=== PATIENT | female | born 1970 | race Caucasian/White ===

== ENCOUNTER → 2018-09-08 | Outpatient (CLI) | payer BC ==
--- NOTE | 2018-09-08 18:05 | EEG ---
DATE OF SERVICE: 09/08/2018 EEG NUMBER: [id number]. OBJECTIVE: The patient is a 48-year-old female with migraines, dizziness, and electrical sensations in her body. DESCRIPTION: This is a digital study. Electrodes are placed according to the international 10-20 system. Bipolar and referential montages are available. Activation procedures typically include hyperventilation and intermittent photic stimulation. INTERPRETATION: The waking background consists of 9-10 Hz, 50-100 microvolt activity, symmetrically distributed over parietooccipital regions and reactive to eye opening. Hyperventilation and intermittent photic stimulation are noncontributory. Stage 2 sleep is achieved with normal electroencephalogram patterns. All computer identified abnormalities are reviewed and none are truly abnormal. IMPRESSION: This electroencephalogram with the patient awake and asleep is within normal limits. There is no focal, paroxysmal, or epileptiform activity. Thank you for letting us help with the patient's care. MIRIAN YOST MD DR: MAX/karly JOB#: [id number] / [id number] DOC Roque
== END | disposition home or self-care (01) ==
LOC: RT 07:55
PROVIDERS: ATTEND Psychiatry & Neurology Neurology with Special Qualifications in Child Neurology
DX: G43.701 Chronic migraine without aura, not intractable, with status migrainosus (principal); M79.7 Fibromyalgia; R20.8 Other disturbances of skin sensation; R42 Dizziness and giddiness
CPT/HCPCS: 95816

== ENCOUNTER → 2018-09-14 | Outpatient (CLI) | payer BC ==
--- NOTE | 2018-09-14 12:24 | KCIC ---
EXAM: Brain MRI without contrast. HISTORY: Migraines. Fibromyalgia. TECHNIQUE: Multiplanar, multisequence magnetic resonance imaging of the brain was performed without contrast. COMPARISON: CT dated 07/21/2018. FINDINGS: There is no restricted diffusion to suggest acute or subacute infarction. There is no susceptibility effect to suggest hemorrhage. There is no mass effect or midline shift. There is no hydrocephalus. No suspicious white matter lesion is seen. The orbits, paranasal sinuses and mastoid air cells are unremarkable. There are normal flow voids within the cerebral vessels. There is no calvarial lesion. There are incidental low-lying cerebellar tonsils, without significant ectopia. IMPRESSION: No acute intracranial finding. Electronically signed by: Drea Otto MD (09/14/2018 12:21 PM) [place] [id number]
== END | disposition home or self-care (01) ==
LOC: KCIC MRI 10:19 → EDUNIT# 11:00
PROVIDERS: ATTEND Psychiatry & Neurology Neurology with Special Qualifications in Child Neurology
DX: G43.701 Chronic migraine without aura, not intractable, with status migrainosus (principal); M79.7 Fibromyalgia; R20.8 Other disturbances of skin sensation
CPT/HCPCS: 70551

== ENCOUNTER 2019-04-26 13:36 | Emergency (ER) | payer BC ==
[~2019-04-26] VITALS: Ht 160 cm; Wt 82.6 kg
[2019-04-26] MEDS ORDERED: MECLIZINE HCL 12.5 MG TABLET. PO STA (13:49)
--- NOTE | 2019-04-26 13:56 | PHYS DOC ---
Adult General Chief Complaint Chief Complaint: MULTIPLE COMPLAINTS HPI HPI Patient is a 48 year old female who presents with multiple symptoms. The patient states that she has a history of migraines and got Botox on Thursday. She states she has a minor headache to the right side of her forehead. The patient also states she's been dizzy, she states that the dizziness can be described as the room is spinning. The patient reports feeling like she is leaning to the left and feeling unbalanced when she is walking. She also reports nausea, mild shortness of breath states that the shortness of breath and sore usual for her. The patient also states she's been having left shoulder pain that radiates down to her left hand this been constant since Thursday. Denies fevers. Review of Systems Review of Systems Constitutional: Denies fever or chills. Reports vertigo. Eyes: Denies change in visual acuity, redness, or eye pain [] HENT: Denies nasal congestion or sore throat [] Respiratory: Reports shortness of breath [] Cardiovascular: No additional information not addressed in HPI [] GI: Reports nausea. Denies abdominal pain, vomiting, bloody stools or diarrhea [] : Denies dysuria or hematuria [] Musculoskeletal: Reports L shoulder pain that radiates down her left arm. Integument: Denies rash or skin lesions [] Neurologic: Reports headache, Denies focal weakness or sensory changes [] Endocrine: Denies polyuria or polydipsia [] Complete systems were reviewed and found to be within normal limits, except as documented in this note. Current Medications Current Medications Current Medications Medications (Trade) Dose Ordered Sig/[facility] Start Time Stop Time Status Last Admin Dose Admin Meclizine HCl (Antivert) 25 mg 1X STAT 04/26/19 13:49 04/26/19 14:00 DC 04/26/19 14:13 25 MG Ondansetron HCl (Zofran) 4 mg 1X ONCE 04/26/19 14:00 04/26/19 14:01 DC 04/26/19 14:13 4 MG Sodium Chloride 1,000 ml @ 1,000 mls/hr 1X ONCE 04/26/19 14:00 04/26/19 14:59 DC 04/26/19 14:13 1,000 MLS/HR Allergies Allergies Allergies Coded Allergies Type Severity Reaction Last Updated Verified acetaminophen Allergy Mild itching 04/26/19 Yes hydrocodone Allergy Mild itching 04/26/19 Yes Physical Exam Physical Exam Constitutional: Well developed, well nourished, no acute distress, non-toxic appearance. [] HENT: Normocephalic, atraumatic, bilateral external ears normal, oropharynx moist, no oral exudates, nose normal. [] Eyes: PERRLA, EOMI, conjunctiva normal, no discharge. [] Neck: Normal range of motion, no tenderness, supple, no stridor. [] Cardiovascular:Heart rate regular rhythm, no murmur [] Lungs & Thorax: Bilateral breath sounds clear to auscultation [] Abdomen: Bowel sounds normal, soft, no tenderness, no masses, no pulsatile masses. [] Skin: Warm, dry, no erythema, no rash. [] Back: No tenderness, no CVA tenderness. [] Extremities: No tenderness, no cyanosis, no clubbing, ROM intact, no edema. [] Neurologic: Alert and oriented X 3, normal motor function, normal sensory function, no focal deficits noted. [] Psychologic: Affect normal, judgement normal, mood normal. [] -josé antonio-hallpike test. Current Patient Data Vital Signs Vital Signs Date Time Temp Pulse Resp B/P (MAP) Pulse Ox O2 Delivery O2 Flow Rate FiO2 04/26/19 17:30 70 14 122/71 (88) 98 Room Air 04/26/19 13:44 97.4 97.4 Lab Values Laboratory Tests Test 04/26/19 13:58 04/26/19 16:45 White Blood Count 6.2 x10^3/uL (4.0-11.0) Red Blood Count 4.07 x10^6/uL (3.50-5.40) Hemoglobin 12.8 g/dL (12.0-15.5) Hematocrit 38.5 % (36.0-47.0) Mean Corpuscular Volume 95 fL (79-100) Mean Corpuscular Hemoglobin 32 pg (25-35) Mean Corpuscular Hemoglobin Concent 33 g/dL (31-37) Red Cell Distribution Width 14.0 % (11.5-14.5) Platelet Count 310 x10^3/uL (140-400) Neutrophils (%) (Auto) 46 % (31-73) Lymphocytes (%) (Auto) 41 % (24-48) Monocytes (%) (Auto) 7 % (0-9) Eosinophils (%) (Auto) 5 % (0-3) H Basophils (%) (Auto) 2 % (0-3) Neutrophils # (Auto) 2.8 x10^3/uL (1.8-7.7) Lymphocytes # (Auto) 2.5 x10^3/uL (1.0-4.8) Monocytes # (Auto) 0.4 x10^3/uL (0.0-1.1) Eosinophils # (Auto) 0.3 x10^3/uL (0.0-0.7) Basophils # (Auto) 0.1 x10^3/uL (0.0-0.2) Sodium Level 140 mmol/L (136-145) Potassium Level 3.9 mmol/L (3.5-5.1) Chloride Level 105 mmol/L (98-107) Carbon Dioxide Level 23 mmol/L (21-32) Anion Gap 12 (6-14) Blood Urea Nitrogen 10 mg/dL (7-20) Creatinine 1.0 mg/dL (0.6-1.0) Estimated GFR (Cockcroft-Gault) 59.7 BUN/Creatinine Ratio 10 (6-20) Glucose Level 128 mg/dL (70-99) H Calcium Level 8.8 mg/dL (8.5-10.1) Total Bilirubin 0.2 mg/dL (0.2-1.0) Aspartate Amino Transferase (AST) 18 U/L (15-37) Alanine Aminotransferase (ALT) 19 U/L (14-59) Alkaline Phosphatase 124 U/L (46-116) H Troponin I Quantitative < 0.017 ng/mL (0.000-0.055) Total Protein 7.4 g/dL (6.4-8.2) Albumin 3.4 g/dL (3.4-5.0) Albumin/Globulin Ratio 0.9 (1.0-1.7) L Urine Collection Type Unknown Urine Color Yellow Urine Clarity Clear Urine pH 7.0 Urine Specific [place] 1.010 Urine Protein Negative mg/dL (NEG-TRACE) Urine Glucose (UA) Negative mg/dL (NEG) Urine Ketones (Stick) Negative mg/dL (NEG) Urine Blood Negative (NEG) Urine Nitrite Negative (NEG) Urine Bilirubin Negative (NEG) Urine Urobilinogen Dipstick 1.0 mg/dL (0.2 mg/dL) Urine Leukocyte Esterase Negative (NEG) Urine RBC 0 /HPF (0-2) Urine WBC 1-4 /HPF (0-4) Urine Squamous Epithelial Cells Many /LPF Urine Bacteria Many /HPF (0-FEW) Laboratory Tests 04/26/19 13:58 Laboratory Tests 04/26/19 13:58 EKG EKG EKG interpreted by Dr. Rivera.[] Sinus with rate of 82. No STEMI. Abnormal EKG, mild non specific ST depression, T abnormality. Radiology/Procedures Radiology/Procedures [address] [id number] IMAGING REPORT Signed PATIENT: REID TIPTON ACCOUNT: [id number] : 1970 LOCATION: ER AGE: 48 SEX: F EXAM STATUS: REG ER ORD. PHYSICIAN: PACO GOMEZ APRN REASON: dizziness, headache PROCEDURE: CT HEAD WO CONTRAST CT HEAD WO CONTRAST Indication: Dizziness, headache. Exposure: One or more of the following individualized dose reduction techniques were utilized for this examination: 1. Automated exposure control 2. Adjustment of the mA and/or kV according to patient size 3. Use of iterative reconstruction technique. Technique: Standard imaging without intravenous contrast. Findings: No evidence of acute infarct cranial hemorrhage, mass effect, midline shift or abnormal extra-axial fluid collection. Ventricles and sulci are symmetric. Odonnell-white matter distinction is preserved. Partially visualized sinuses are clear. The visualized mastoids and auditory canals appear grossly clear. No evidence of acute skull abnormality. No prominent scalp swelling. IMPRESSION: No evidence of acute intracranial hemorrhage or mass effect. Could consider outpatient MR brain for further evaluation if symptoms persist. Electronically signed by: Paco Castaneda MD (04/26/2019 2:41 PM) [facility] DICTATED and SIGNED BY: PACO CASTANEDA MD DATE: 04/26/19 1441 [][address] [id number] IMAGING REPORT Signed PATIENT: REID TIPTON ACCOUNT: [id number] : 1970 LOCATION: ER AGE: 48 SEX: F EXAM STATUS: REG ER ORD. PHYSICIAN: PACO GOMEZ APRN REASON: shortness of breath, dizzy x 2 days PROCEDURE: CHEST PA & LATERAL Study: CHEST PA LATERAL Indication: Shortness of breath. Dizziness. Comparison: None. Findings: No pneumothorax, lobar infiltrate or layering effusion. The cardiomediastinal silhouette and hilar structures are within normal limits. Impression: No acute radiographic abnormality of the chest. Electronically signed by: SUZANNA MCCALL MD (04/26/2019 2:41 PM) [facility] DICTATED and SIGNED BY: SUZANNA MCCALL MD DATE: 04/26/19 144 Course & Med Decision Making Course & Med Decision Making Pertinent Labs and Imaging studies reviewed. (See chart for details) The patient is having multiple complaints. SEE HPI. Will get CT head, Chest x- ray and labs. Will give Meclizine, fluids, and zofran. The patient's workup is benign. Labs are unremarkable. Chest x-ray and CT of the head are unremarkable. Her EKG did have some subtle changes although there was no EKG to compare to. She states the left arm pain disappeared. Offered admission to this patient and suggested that we could do a cardiac workup in the hospital on her. Declined being admitted at this time. I did recommend her following up with her primary care doctor tomorrow to have more tests ordered. Dragon Disclaimer Dragon Disclaimer This electronic medical record was generated, in whole or in part, using a voice recognition dictation system. Departure Departure Impression: Primary Impression: Vertigo Additional Impression: Left arm pain Disposition: HOME, SELF-CARE Condition: STABLE Referrals: RYANNE MARTINI (PCP) Patient Instructions: Vertigo Additional Instructions: Thank you for visiting [facility]. We appreciate you trusting us with your care. If any additional problems come up don't hesitate to return to visit us. Please follow up with your primary care provider so they can plan additional care if needed and know about the problem that you had. If symptoms worsen come back to the Emergency Department. Any concerning symptoms that start such as chest pain, shortness of air, weakness or numbness on one side of the body, running high fevers or any other concerning symptoms return to the ER. Please fill your medications at any pharmacy and follow the prescription instructions. Scripts Meclizine Hcl (MECLIZINE HCL) 25 Mg Tablet 1 TAB PO PRN TID PRN for DIZZINESS, #30 TAB Prov: PACO GOMEZ APRN 04/26/19 Problem Qualifiers PACO GOMEZ APRN Apr 26, 2019 13:56
[2019-04-26] MEDS ORDERED: IV NORMAL SALINE 1000ML BAG 1,000 ML IV ONE (14:00)
[2019-04-26] MEDS ORDERED: ONDANSETRON PF 4 MG/2 ML VIAL. IV ONE (14:00)
[2019-04-26 14:06] LABS: BASO # 0.1 x10^3/uL (0.0-0.2); BASO % 2 % (0-3); EOS # 0.3 x10^3/uL (0.0-0.7); EOS % 5 % (0-3); HEMATOCRIT 38.5 % (36.0-47.0); HEMOGLOBIN 12.8 g/dL (12.0-15.5); LYMPH # 2.5 x10^3/uL (1.0-4.8); LYMPH % 41 % (24-48); MEAN CORPUSCULAR HEMOGLOBIN 32 pg (25-35); MEAN CORPUSCULAR HGB CONC 33 g/dL (31-37); MEAN CORPUSCULAR VOLUME 95 fL (79-100); MONO # 0.4 x10^3/uL (0.0-1.1); MONO % 7 % (0-9); NEUT # 2.8 x10^3/uL (1.8-7.7); NEUT % 46 % (31-73); PLATELET COUNT 310 x10^3/uL (140-400); RED BLOOD COUNT 4.07 x10^6/uL (3.50-5.40); WHITE BLOOD COUNT 6.2 x10^3/uL (4.0-11.0)
--- NOTE | 2019-04-26 14:18 | EKG ---
[facility] [address] [place] [address] Test Date: 2019-04-26 Test Time: 13:45:17 Pat Name: REID TIPTON Department: Room: Gender: F [employer]: : 1970 Requested By: BETZY GOMEZ Order Number: [id number] Reading MD: Justus Valencia MD Measurements Intervals [place] Rate: 81 P: 39 AK: 120 QRS: 45 QRSD: 94 T: -4 QT: 368 QTc: 432 Interpretive Statements SINUS RHYTHM Electronically Signed On 04-26-2019 15:15:29 SPARE PERSON by Justus Valencia MD
[2019-04-26 14:19] LABS: GFR 59.7; POTASSIUM 3.9 mmol/L (3.5-5.1)
[2019-04-26 14:25] LABS: ALBUMIN 3.4 g/dL (3.4-5.0); ALBUMIN/GLOBULIN RATIO 0.9 (1.0-1.7); TOTAL BILIRUBIN 0.2 mg/dL (0.2-1.0); TOTAL PROTEIN 7.4 g/dL (6.4-8.2)
--- NOTE | 2019-04-26 14:44 | RAD ---
CT HEAD WO CONTRAST Indication: Dizziness, headache. Exposure: One or more of the following individualized dose reduction techniques were utilized for this examination: 1. Automated exposure control 2. Adjustment of the mA and/or kV according to patient size 3. Use of iterative reconstruction technique. Technique: Standard imaging without intravenous contrast. Findings: No evidence of acute infarct cranial hemorrhage, mass effect, midline shift or abnormal extra-axial fluid collection. Ventricles and sulci are symmetric. Odonnell-white matter distinction is preserved. Partially visualized sinuses are clear. The visualized mastoids and auditory canals appear grossly clear. No evidence of acute skull abnormality. No prominent scalp swelling. IMPRESSION: No evidence of acute intracranial hemorrhage or mass effect. Could consider outpatient MR brain for further evaluation if symptoms persist. Electronically signed by: Paco Castaneda MD (04/26/2019 2:41 PM) [id number]
--- NOTE | 2019-04-26 14:44 | RAD ---
Study: CHEST PA LATERAL Indication: Shortness of breath. Dizziness. Comparison: None. Findings: No pneumothorax, lobar infiltrate or layering effusion. The cardiomediastinal silhouette and hilar structures are within normal limits. Impression: No acute radiographic abnormality of the chest. Electronically signed by: SUZANNA MCCALL MD (04/26/2019 2:41 PM) [facility]
[2019-04-26 14:52] LABS: CALCIUM 8.8 mg/dL (8.5-10.1)
[2019-04-26 16:58] LABS: BILIRUBIN,URINE NEGATIVE (NEG); CLARITY,URINE CLEAR; COLOR,URINE YELLOW; NITRITE,URINE NEGATIVE (NEG); PROTEIN,URINE NEGATIVE (NEG-TRACE)
[2019-04-26] MEDS ORDERED: MECL25TA3 PO (17:13)
[2019-04-26 17:15] LABS: BACTERIA,URINE MANY /HPF (0-FEW); RBC,URINE 0 /HPF (0-2); SQUAMOUS EPITHELIAL CELL,UR MANY /LPF
[2019-04-26 17:30] VITALS: BP 122/71
== END 2019-04-26 17:42 | disposition home or self-care (01) ==
LOC: ER 13:36
DX: R42 Dizziness and giddiness (principal); R51 Headache; M79.602 Pain in left arm; Z88.6 Allergy status to analgesic agent; Z88.5 Allergy status to narcotic agent
CPT/HCPCS: 36415; 70450; 71046; 80053; 81001; 84484; 85025; 87086; 93005; 96361; 96374; 99285; J2405; J7030; J8597

== ENCOUNTER 2019-06-08 00:22 | Emergency (ER) | payer BC ==
[~2019-06-08] VITALS: Ht 160 cm; Wt 81.6 kg
[~2019-06-08 00:22] MED LIST: MECL-75 PO
[2019-06-08 02:45] VITALS: BP 118/68
--- NOTE | 2019-06-08 03:46 | PHYS DOC ---
Past Medical History Past Medical History: Anxiety, Migraines, Other Additional Past Medical Histor: endometriosis Past Surgical History: Appendectomy, Cholecystectomy, Hysterectomy, Other Additional Past Surgical Histo: gastric sleeve; breast aug.;lasik; endometriosis Alcohol Use: Rarely Drug Use: None Adult General Chief Complaint Chief Complaint: Neck Pain HPI HPI 49-year-old female presents to the emergency Department complaints of neck pain. Patient has a history of cervical stenosis C5-C6 she points of left arm and shoulder pain she states she took her hydrocodone today without significant improvement. 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 Resistance tonight with similar complaints discussed options of Norflex, anti-inflammatory, Decadron patient's has been became upset given the concern for not treating her pain with narcotic medications. Patient states this pain is similar to how she has dealt in the past however just was not relieved with hydrocodone. She does at times describe radicular type symptoms however tonight she's mainly pain. Denies any fever, chest pain, shortness breath, nausea, vomiting. Review of Systems Review of Systems Constitutional: Denies fever or chills [] Respiratory: Denies cough or shortness of breath [] Cardiovascular: No additional information not addressed in HPI [] GI: Denies abdominal pain, nausea, vomiting, bloody stools or diarrhea [] Musculoskeletal: neck pain,left arm pain Integument: Denies rash or skin lesions [] Neurologic: Denies headache, focal weakness or sensory changes [] All other systems were reviewed and found to be within normal limits, except as documented in this note. Current Medications Current Medications Current Medications Medications (Trade) Dose Ordered Sig/[place] Start Time Stop Time Status Last Admin Dose Admin Dexamethasone Sodium Phosphate (Decadron) 10 mg 1X ONCE 06/08/19 04:00 06/08/19 04:02 DC 06/08/19 04:06 10 MG Ketorolac Tromethamine (Toradol Im) 60 mg 1X ONCE 06/08/19 04:00 06/08/19 04:02 DC 06/08/19 04:05 60 MG Orphenadrine Citrate (Norflex) 60 mg 1X ONCE 06/08/19 04:00 06/08/19 04:02 DC 06/08/19 04:06 60 MG Allergies Allergies Allergies Coded Allergies Type Severity Reaction Last Updated Verified acetaminophen Allergy Mild itching 11/26/19 Yes hydrocodone Allergy Mild itching 04/26/19 Yes Physical Exam Physical Exam Constitutional: Well developed, well nourished, distress 2/2 pain, non-toxic appearance. [] HENT: Normocephalic, atraumatic, bilateral external ears normal, oropharynx moist, no oral exudates, nose normal. [] Eyes: PERRLA, EOMI, conjunctiva normal, no discharge. [] Neck: Normal range of motion, TTP midline on C6, C7 Cardiovascular:Heart rate regular rhythm, no murmur [] Lungs & Thorax: Bilateral breath sounds clear to auscultation [] Abdomen: Bowel sounds normal, soft, no tenderness, no masses, no pulsatile masses. [] Skin: Warm, dry, no erythema, no rash. [] Back: No tenderness, no CVA tenderness. [] Extremities: No tenderness, no edema. [] Neurologic: Alert and oriented X 3, no focal deficits noted. [] Psychologic: Affect normal, judgement normal, mood normal. [] Current Patient Data Vital Signs Vital Signs Date Time Temp Pulse Resp B/P (MAP) Pulse Ox O2 Delivery O2 Flow Rate FiO2 06/08/19 02:45 97.5 74 18 118/68 (85) 100 Room Air 97.5 EKG EKG [] Radiology/Procedures Radiology/Procedures [] Course & Med Decision Making Course & Med Decision Making Pertinent Labs and Imaging studies reviewed. (See chart for details) []49-year-old female presents to the emergency Department complaints of neck pain. Patient has a history of cervical stenosis C5-C6 she points of left arm and shoulder pain she states she took her hydrocodone today without significant improvement. 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 Resistance tonight with similar complaints discussed options of Norflex, anti-inflammatory, Decadron patient's has been became upset given the concern for not treating her pain with narcotic medications. Patient states this pain is similar to how she has dealt in the past however just was not relieved with hydrocodone. She does at times describe radicular type symptoms however tonight she's mainly pain. Denies any fever, chest pain, shortness breath, nausea, vomiting. Toradol/Norflex/Decadron IM Patient with improved pain Recommend follow up with MRI as scheduled Recommend return to ER with worsening symptoms No imaging given known diagnosis with cervical stenosis and symptoms without change Dragon Disclaimer Dragon Disclaimer This electronic medical record was generated, in whole or in part, using a voice recognition dictation system. Departure Departure Impression: Primary Impression: Cervical spinal stenosis Disposition: HOME, SELF-CARE Condition: IMPROVED Referrals: RYANNE MARTINI (PCP) Patient Instructions: Spinal Stenosis, [id number] Additional Instructions: Recommend follow up with PCP 3 - 5 days Return to the ER with worsening symptoms, intractable pain, fever, altered mental status Take medications as previously prescribed for pain Recommend calling to see if MRI can be moved up Received Norflex, Toradol, Decadron IM in ER BEATRIZ SAXENA MD Jun 08, 2019 03:46
[2019-06-08] MEDS: KETOROLAC 60 MG/2 ML VIAL. IM ONE (04:05)
[2019-06-08] MEDS: DEXAMETHASONE SOD PHOS 4 MG/ML VIAL IM ONE (04:06)
[2019-06-08] MEDS: ORPHENADRINE CITRATE 60 MG/2 ML VIAL. IM ONE (04:06)
== END 2019-06-08 04:15 | disposition home or self-care (01) ==
LOC: ER 00:22
DX: M48.02 Spinal stenosis, cervical region (principal); M25.512 Pain in left shoulder; F41.9 Anxiety disorder, unspecified; N80.9 Endometriosis, unspecified; G43.909 Migraine, unspecified, not intractable, without status migrainosus; Z90.89 Acquired absence of other organs; Z90.710 Acquired absence of both cervix and uterus; Z90.49 Acquired absence of other specified parts of digestive tract; Z98.890 Other specified postprocedural states; Z88.5 Allergy status to narcotic agent; Z88.6 Allergy status to analgesic agent
CPT/HCPCS: 96372; 99284; J1100; J1885; J2360

== ENCOUNTER → 2019-06-13 | Outpatient (CLI) | payer BC ==
[2019-06-08 02:45] VITALS: BP 118/68
--- NOTE | 2019-06-13 14:02 | KCIC ---
CERVICAL SPINE WO CONTRAST History: Cervicalgia. Chronic neck pain with left upper extremity pain and weakness. Technique: Multiplanar, multi sequential noncontrast MR imaging was performed of the cervical spine. Comparison: None Findings: Straightening of the normal cervical lordosis. Otherwise, normal vertebral body alignment. Normal vertebral body height. No fracture. No pathologic signal abnormality within the cervical spinal cord. C2-C3: No canal or neuroforaminal narrowing. Mild facet arthropathy. C3-C4: No canal or neuroforaminal narrowing. Mild facet arthropathy. C4-C5: No canal or neuroforaminal narrowing. Mild facet arthropathy. C5-C6: Posterior disc osteophyte complex. Indention of ventral thecal sac. Minimal cord flattening. No canal narrowing. Minimal neuroforaminal narrowing. Mild facet arthropathy. C6-C7: Posterior disc osteophyte complex. Indention of ventral thecal sac. Mild cord flattening. No canal narrowing. Minimal neuroforaminal narrowing. Mild facet arthropathy. Left uncovertebral hypertrophy. C7-T1: No canal or neuroforaminal narrowing. Impression: 1. Mild multilevel cervical spondylosis most prominent C5-C6 and C6-C7. Electronically signed by: Neil Fernandez DO (06/13/2019 1:59 PM) [facility]
== END | disposition home or self-care (01) ==
LOC: KCIC MRI 12:19
PROVIDERS: ATTEND Physician Assistant Medical
DX: M47.812 Spondylosis without myelopathy or radiculopathy, cervical region (principal); M48.02 Spinal stenosis, cervical region; M25.78 Osteophyte, vertebrae; G89.29 Other chronic pain; M12.88 Other specific arthropathies, not elsewhere classified, other specified site; M89.38 Hypertrophy of bone, other site; Z90.49 Acquired absence of other specified parts of digestive tract
CPT/HCPCS: 72141

== ENCOUNTER → 2019-12-16 | Outpatient (CLI) | payer BC ==
--- NOTE | 2019-12-16 10:21 | KCIC ---
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 Comparison: June 13, 2019 Findings: There is some motion degradation. Cervical cord caliber is within normal limits without defined or expansile signal abnormality. Cervical vertebral body stature and AP alignment overall maintained. There is no significant focal marrow edema. There is again advanced degenerative disc disease C5-6, minimally at C6-7. There is again posterior annular tear C6-7. C2-C3: Neural foramina and spinal canal are adequate. C3-C4: Neural foramina and spinal canal are adequate. C4-C5: Spinal canal and neural foramina are adequate. C5-C6: There is again broad posterior disc osteophyte complex, central canal minimally narrowed about 9 to 10 mm. There is uncovertebral degenerative change greater on the left. There is again mild narrowing of the left neural foramen, very minimal narrowing of the right. C6-C7: There is again shallow posterior protrusion. Central canal is borderline about 10 mm as seen previously. There is left uncovertebral degenerative change. There is degree of bilateral facet degenerative change. Right neural foramen is adequate. There is again mild narrowing of the left neural foramen. C7-T1: Neural foramina and spinal canal are adequate. Impression: 1. Findings are similar comparing with the previous June 2019 exam. There is again advanced degenerative disc disease at C5-6 and minimally at C6-7, spondylosis at these levels. There is again mild spinal stenosis at C6-7. There is mild narrowing of the left C5-6 and C6-7 neural foramina. Electronically signed by: Ahmet Hdez MD (12/16/2019 10:18 AM) [place] [id number]
== END | disposition home or self-care (01) ==
LOC: KCIC MRI 09:13
PROVIDERS: ATTEND Anesthesiology
DX: M50.122 Cervical disc disorder at C5-C6 level with radiculopathy (principal); M47.22 Other spondylosis with radiculopathy, cervical region; M48.02 Spinal stenosis, cervical region; M25.78 Osteophyte, vertebrae
CPT/HCPCS: 72141